=== PATIENT | male | born 1990 | race Caucasian/White ===

== ENCOUNTER 2017-06-13 04:55 | Emergency (ER) | payer BC ==
[~2017-06-13] VITALS: Ht 188 cm; Wt 72.6 kg
[~2017-06-13 04:55] MED LIST: ACEASPCAF PO; BUPR1 PO; CLIN300 PO; HYDACE5 PO; IBUP600 PO; LOPE2C PO; NAPR500 PO; Norco 10-325 T1 EACH PO; PENVK500 PO; PHENA200 PO; PRED10 PO; PROM25 PO; PROPRANOLOL PO; RXPHEN200 PO; SUBOXONE PO; SULTRIDS PO; Veetids 500500 MG PO
[2017-06-13] MEDS ORDERED: Prinivil10 MG PO (05:17)
[2017-06-13] MEDS ORDERED: BUPRENORPHINE HC8 MG SL (05:23)
[2017-06-13] MEDS ORDERED: Inderal40 MG (05:26)
[2017-06-13] MEDS ORDERED: Amoxicillin500 MG PO (05:27)
== END 2017-06-13 05:55 | disposition home or self-care (01) ==
LOC: ER 04:55
DX: H66.91 Otitis media, unspecified, right ear (principal); Z79.899 Other long term (current) drug therapy; Z79.2 Long term (current) use of antibiotics; I10 Essential (primary) hypertension; F17.200 Nicotine dependence, unspecified, uncomplicated
CPT/HCPCS: 96372; 99283; J1885

== ENCOUNTER 2020-06-13 08:31 | Emergency (ER) | payer BC ==
[~2020-06-13 08:31] MED LIST changes: +Amoxicillin500 MG PO; +BUPRENORPHINE HC8 MG SL; +Inderal40 MG; +Prinivil10 MG PO
== END 2020-06-13 09:20 | disposition home or self-care (01) ==
LOC: ER 08:31
DX: S76.012A Strain of muscle, fascia and tendon of left hip, initial encounter (principal); S29.012A Strain of muscle and tendon of back wall of thorax, initial encounter; M54.2 Cervicalgia; I10 Essential (primary) hypertension; F17.200 Nicotine dependence, unspecified, uncomplicated; Z79.899 Other long term (current) drug therapy; V49.40XA Driver injured in collision with unspecified motor vehicles in traffic accident, initial encounter; Y92.410 Unspecified street and highway as the place of occurrence of the external cause
CPT/HCPCS: 99282

== ENCOUNTER 2022-09-21 16:59 | Emergency (ER) | payer BC ==
[~2022-09-21] VITALS: Ht 185.4 cm; Wt 95.2 kg
[2022-09-21 17:00] VITALS: BP 128/82
[2022-09-21] MEDS ORDERED: PRED20 PO (17:15)
== END 2022-09-21 17:33 | disposition home or self-care (01) ==
LOC: ER 16:59
DX: L25.5 Unspecified contact dermatitis due to plants, except food (principal); I10 Essential (primary) hypertension; F17.200 Nicotine dependence, unspecified, uncomplicated; Z79.899 Other long term (current) drug therapy
CPT/HCPCS: 99282

== ENCOUNTER → 2025-02-24 | Outpatient (CLI) | payer BC ==
[~2025-02-24] MED LIST changes: +PRED20 PO
[2025-02-24 16:28] LABS: BASOPHILS ABSOLUTE AUTO 0.03 K/mm3 (0.00-0.23); BASOPHILS PERCENT AUTO 1 % (0-2); EOSINOPHILS ABSOLUTE AUTO 0.25 K/mm3 (0.00-0.68); EOSINOPHILS PERCENT AUTO 4 % (0-6); Hematocrit 42.4 % (37.0-53.0); Hemoglobin 13.8 g/dL (13.5-17.5); IMMATURE GRAN ABSOLUTE AUTO 0.06 K/mm3 (0.00-0.10); IMMATURE GRAN PERCENT AUTO 1 % (0-1); LYMPHOCYTES ABSOLUTE AUTO 2.56 K/mm3 (0.84-5.20); LYMPHOCYTES PERCENT AUTO 42 % (21-46); MONOCYTES ABSOLUTE AUTO 0.44 K/mm3 (0.16-1.47); MONOCYTES PERCENT AUTO 7 % (4-13); Mean Corpuscular HGB Conc 32.5 g/dL (31.5-36.5); Mean Corpuscular Volume 91 fL (80-100); NEUTROPHILS ABSOLUTE AUTO 2.70 K/mm3 (1.96-9.15); NEUTROPHILS PERCENT AUTO 45 % (41-73); NRBC ABSOLUTE 0.00 K/mm3 (0.00-0.02); NRBC Auto 0.0 /100 WBC (0.0-0.2); Platelet Count 360 K/mm3 (150-400); RDW Coefficient Variation 12.4 % (11.7-14.2); RDW Standard Deviation 41.3 fL (35.1-46.3)
[2025-02-24 21:43] LABS: Alanine Aminotransfer (ALT/SGP 36 U/L (12-78); Albumin, Blood 3.7 g/dL (3.4-5.0); Albumin/Globulin Ratio 0.9 (0.8-1.8); Anion Gap 8 mmol/L (3-11); Aspartate Aminotrans (AST/SGOT 22 U/L (12-37); Bilirubin, Total 0.2 mg/dL (0.1-1.0); Blood Urea Nitrogen 12 mg/dL (8-24); CHOL/HDL RATIO 4.6; CO2, Blood 30 mmol/L (21-32); Calcium, Blood 9.5 mg/dL (8.5-10.1); Chloride, Blood 100 mmol/L (98-108); Cholesterol 130 mg/dL (50-200); Creatinine, Blood 0.81 mg/dL (0.60-1.20); Globulin, Blood 4.0 g/dL (2.2-4.0); Glucose, Blood 126 mg/dL (70-99); HDL Cholesterol 28 mg/dL (>39); LDL/HDL RATIO 2.2; Low Density Lipoprotein Chol 63 mg/dL (0-110); Potassium, Blood 4.2 mmol/L (3.5-5.5); Sodium, Blood 134 mmol/L (136-145); Thyroid Stimulating Hormone 4.490 uIU/mL (0.360-4.800); Total Protein, Blood 7.7 g/dL (6.4-8.2); Triglycerides 196 mg/dL (30-140); Very Low Density Lipoprot Chol 39 mg/dL (6-28)
== END ==
LOC: LAB SHORT 07:40
PROVIDERS: Student in an Organized Health Care Education/Training Program
DX: Z13.6 Encounter for screening for cardiovascular disorders (principal); I10 Essential (primary) hypertension; F11.21 Opioid dependence, in remission; M54.2 Cervicalgia; N52.2 Drug-induced erectile dysfunction
CPT/HCPCS: 80053; 80061; 84443; 85025